=== PATIENT | female | born 1990 | race African-American/Black ===

== ENCOUNTER 2017-05-10 12:03 | Outpatient (CLI) | payer OTHER ==
[2017-05-10 12:54] LABS: Hematocrit 40.6 % (36.0-47.0); Mean Platelet Volume 6.6 fL (7.4-10.4); Red Blood Cell (RBC) Count 4.49 mill/uL (4.20-5.40); White Blood Cell (WBC) Count 5.8 thou/uL (4.8-10.8)
== END 2017-05-10 12:04 | disposition home or self-care (01) ==
LOC: LABBT 12:03
PROVIDERS: ATTEND Orthopaedic Surgery
DX: Z01.812 Encounter for preprocedural laboratory examination (principal); S83.241A Other tear of medial meniscus, current injury, right knee, initial encounter
CPT/HCPCS: 84703; 85027

== ENCOUNTER 2017-05-11 07:45 | Day surgery (SDC) | payer OTHER ==
[2017-05-10 12:10] VITALS: BMI 49.8
[2017-05-11] MEDS ORDERED: Midazolam HCl 2 mg/2 ml Vial ONE (09:25)
[2017-05-11] MEDS ORDERED: Ondansetron HCl/PF 4 MG/2 ML Vial ONE (09:37)
[2017-05-11] MEDS ORDERED: Lidocaine 2% PF 10 ML AMP (For Epidural Use) ONE (09:37)
[2017-05-11] MEDS ORDERED: Ketorolac Tromethamine 30 MG/ML VIAL ONE (09:37)
[2017-05-11] MEDS ORDERED: Propofol 200 MG/20 ML VIAL ONE (09:37)
[2017-05-11] MEDS ORDERED: Dexamethasone 20 MG/5 ML VIAL ONE (09:37)
[2017-05-11] MEDS ORDERED: Bupivacaine/Epinephrine 0.25% 30 ML VIAL ONE (09:40)
[2017-05-11] MEDS ORDERED: Lidocaine 1% (PF) 30 ML VIAL ONE (09:45)
--- NOTE | 2017-05-11 11:21 | OP ---
DATE OF PROCEDURE: 05/11/2017 PREOPERATIVE DIAGNOSES: Right medial knee pain. MRI diagnosis of a flap tear of the medial meniscus and chondral changes medial femoral condyle. POSTOPERATIVE DIAGNOSES: 1. No medial meniscus tear. 2. Fissuring medial femoral condyle. PROCEDURE PERFORMED: Diagnostic arthroscopy. STAFF: Andres Kelly M.D. BLACK TOP SPREADER MACHINE OPERATOR: None. ANESTHESIA: Pastor. The patient received LMA. ESTIMATED BLOOD LOSS: 10 mL. TOURNIQUET TIME: 17 minutes. ANTIBIOTICS: Ancef 2 grams. IMPLANTS: None. COMPLICATIONS: None. HISTORY OF PRESENT ILLNESS: Ms. Ibarra is a 26-year-old female who presented to me after injuring herself on 02/10/2017 and had increasing pain and swelling. She had been treated by another physician back in August and slipping in mud, had repeat pain in January. The patient had MRI which showed what appeared to be evidence of a flap tear of the medial meniscus, medial femoral condyle changes, no obvious full thickness cartilage defect, no acute fractures intact PCL as well as MCL. I discussed with patient the risks, benefits of surgery to include pain, scar, bleeding, infection, damage to vital structures, decreased range of motion or strength, need for further surgeries, failure of procedure, continued pain despite surgical intervention. The patient understood these risks and benefits and elected to proceed. PROCEDURE IN DETAIL: Time out was performed designating the patient's right lower extremity as the operative site based on sight, consents, markings. After completion of timeout, the patient's right leg was prepped and draped in sterile fashion. Tourniquet was brought up and left up for 17 minutes, anteromedial portal was placed. Anterolateral portal was placed, spinal needle was used to placed our anteromedial portal, visualized intraarticularly, debrided the fat pad, looked at the patellofemoral joint. There was no chondral lesions. I looked in the lateral compartment. The lateral meniscus was intact. I looked in the gutters for loose bodies. The medial femoral condyle had some fissuring that I noted along the medial femoral condyle, but no obvious full thickness defects would be like grade I chondromalacia changes 0 -1, I looked at the medial femoral condyle. The meniscus had a ruffled border, I flipped it up, I probed it medially and laterally, I could not find a tear anywhere with my probe. I took multiple pictures to show no tear within the meniscus. Given this, I completed my diagnostic arthroscopy, washed the joint. I had placed Marcaine in before this procedure. I placed lidocaine in the joint afterwards as well as subcutaneous and I closed with 3-0 nylon. The patient will be weightbearing as tolerated. The patient will receive p.o. pain medication. Follow up with me in clinic in 2 weeks. NORMA
== END 2017-05-11 12:47 | disposition home or self-care (01) ==
LOC: SDC 07:45
PROVIDERS: ATTEND Orthopaedic Surgery
PROC: 0SJC4ZZ Inspection of Right Knee Joint, Percutaneous Endoscopic Approach (ICD-10-PCS; principal; 2017-05-11)
DX: S83.31XA Tear of articular cartilage of right knee, current, initial encounter (principal); E66.01 Morbid (severe) obesity due to excess calories; Z68.42 Body mass index [BMI] 45.0-49.9, adult; Z90.89 Acquired absence of other organs
CPT/HCPCS: G8978-GP-CJ; G8979-GP-CJ; G8980-GP-CJ; J1100; J1885; J2001; J2250; J2405; J2704

== ENCOUNTER 2018-03-07 12:14 | Outpatient (CLI) | payer OTHER | END 2018-03-07 12:15 | disposition home or self-care (01) | LOC: BICMRI 12:14 | PROVIDERS: ATTEND Family Medicine | DX: M23.91 Unspecified internal derangement of right knee (principal); Z98.890 Other specified postprocedural states ==

== ENCOUNTER 2018-07-02 15:13 | Outpatient (CLI) | payer BC ==
--- NOTE | 2018-07-02 15:53 | ULT ---
ULTRASOUND WITH DOPPLER DUPLEX VENOUS LOWER EXTREMITY RIGHT CPT: 26853 ICD-10-PCS: B54D HISTORY: Pain. TECHNIQUE: Color flow Doppler, spectral waveform analysis of pulsed Doppler, and wilson-scale imaging with liv cy and augmentation, were used to evaluate the bilateral common femoral, femoral, popliteal, senior contract specialist ior tibial, and superficial femoral, veins; and the proximal portions of the profunda femoral and gre ater saphenous, veins. FINDINGS: There is appropriate compressibility and flow within the imaged deep venous system of the imaged righ t lower extremity. IMPRESSION: No DVT. POS: [facility]
== END 2018-07-02 15:14 | disposition home or self-care (01) ==
LOC: SCSULT 15:13
PROVIDERS: ATTEND Orthopaedic Surgery
DX: M79.661 Pain in right lower leg (principal); M79.89 Other specified soft tissue disorders

== ENCOUNTER 2018-10-12 10:14 | Outpatient (CLI) | payer BC ==
--- NOTE | 2018-10-12 12:16 | ULT ---
RIGHT LOWER EXTREMITY VENOUS DUPLEX EXAM: HISTORY: Edema of leg. FINDINGS: Real-time color Doppler evaluation of the right lower extremity was performed from groin to calf. Th is includes evaluation of the common femoral, superficial, and pleural fluid, saphenous, popliteal, a nd posterior tibial veins. This shows a patent deep venous system with normal compressibility and au gmentation. There does appear to be some edema change in the soft tissue. IMPRESSION: No evidence of deep vein thrombosis in the right lower extremity. POS: T[facility]
== END 2018-10-12 10:15 | disposition home or self-care (01) ==
LOC: BICULT 10:14
PROVIDERS: ATTEND Physician Assistant
DX: I89.0 Lymphedema, not elsewhere classified (principal)